=== PATIENT | female | born 1985 | race African-American/Black ===

== ENCOUNTER 2018-05-06 20:09 | Emergency (ER) | payer OTHER ==
[~2018-05-06] VITALS: Ht 162.6 cm; Wt 54.4 kg
[2018-05-06 21:00] VITALS: BP 126/90
--- NOTE | 2018-05-06 21:13 | Emergency Room Report ---
History of Present Illness General Chief Complaint: General Complaint Source: Patient Present Illness HPI Patient presents with several months of rash on her skin. They've enlarging in size. They've been itching. She denies any trauma to these areas. She denies fevers, chills, nausea, vomiting, diarrhea. She also recently saw her PSYCHOLOGICAL ASSISTANT and states that the exam was benign and denies any dysuria. She denies any medication at this time. (Later she recalls using Flagyl which she stopped several days ago.) The rashes predated the use of medication. She is concerned as one of these is on her lower lip. There is darkening of the pigment of her lip on one side. Though she denies pain to me (more itching) she reported pain 7/10 in these areas. They first appeared in August or September. At that time, there were no new foods, perfumes, soaps or exposures. No increased stress. No SOB, throat swelling, chest pain, joint pain. LNMP ended 4 days ago. Allergies: Coded Allergies: No Known Allergies (Unverified , 05/06/18) Patient History Past Medical History: see triage record Social History: Reports: smoking Social History Narrative here with friend Last Menstrual Period: 4 days ago Now: No Reviewed Nursing Documentation: PMH: Agreed; PSxH: Agreed Nursing Documentation-PMH Past Medical History: No Stated History Review of Systems All Other Systems: negative except mentioned in HPI Physical Exam Vital Signs Date Time Temp Pulse Resp B/P (MAP) Pulse Ox O2 Delivery O2 Flow Rate FiO2 05/06/18 20:48 98.2 95 16 126/90 96 Room Air Sp02 EP Interpretation: reviewed, normal General Appearance: well appearing, no apparent distress, GCS 15 Head: normocephalic, atraumatic Eyes: bilateral eye normal inspection, bilateral eye PERRL ENT: normal pharynx, no angioedema, moist mucus membranes, other - slight swelling L lower lip, no oral lesions Neck: supple Respiratory: lungs clear, normal breath sounds Cardiovascular #1: regular rate, rhythm Cardiovascular #2: 2+ radial (R) Gastrointestinal: normal inspection, normal bowel sounds, non tender, no mass, non-distended Musculoskeletal: back normal, gait/station normal, normal range of motion Neurologic: alert, oriented x3, grossly normal Psychiatric: mood/affect normal Skin: other - Purpuric/hyperpigmented macules 2 x 4 cm on the arm with surrounding erythema. These are not target lesions. Medical Decision Making Diagnostic Impression: Primary Impression: Contact dermatitis Qualified Codes: L25.9 - Unspecified contact dermatitis, unspecified cause Additional Impression: Solar purpura ER Course Patient presents with itchy skin lesions. Differential includes palpable purpura, vasculitis, bruising, thrombocytopenia amongst others. Labs will be performed including urinalysis, sedimentation rate and also coagulation studies. The patient will be given a dose of Benadryl. Labs with normal ESR, CBC, CMP, coags and urine. Patient somewhat improved with Benadryl. These lesions appear to be solar purpura. Patient stable for outpatient observation and treatment. Advised to follow up with a special tester. Laboratory Tests Test 05/06/18 21:58 05/06/18 21:59 Urine Color Yellow Urine Appearance Cloudy Urine pH 8 (4.5-8.0) Urine Specific [place] 1.015 (1.005-1.035) Urine Protein Negative (NEGATIVE) Urine Glucose (UA) Negative (NEGATIVE) Urine Ketones Negative (NEGATIVE) Urine Blood 1+ (NEGATIVE) H Urine Nitrite Negative (NEGATIVE) Urine Bilirubin Negative (NEGATIVE) Urine Urobilinogen 1 MG/DL (0.0-1.0) H Urine Leukocyte Esterase 1+ (NEGATIVE) H Urine RBC 2-4 /HPF (0 - 2) H Urine WBC 0-2 /HPF (0 - 2) Urine Squamous Epithelial Cells Few /LPF (NONE/OCC) Urine Amorphous Sediment Many /LPF (NONE) H Urine Bacteria Moderate /HPF (NONE) H Urine HCG, Qualitative Negative (NEGATIVE) White Blood Count 8.1 K/UL (4.8-10.8) Red Blood Count 4.81 M/UL (4.20-5.40) Hemoglobin 14.0 G/DL (12.0-16.0) Hematocrit 42.7 % (37.0-47.0) Mean Corpuscular Volume 89 FL (80-99) Mean Corpuscular Hemoglobin 29.1 PG (27.0-31.0) Mean Corpuscular Hemoglobin Concent 32.8 G/DL (32.0-36.0) Red Cell Distribution Width 12.9 % (11.6-14.8) Platelet Count 519 K/UL (150-450) H Mean Platelet Volume 5.4 FL (6.5-10.1) L Neutrophils (%) (Auto) 43.1 % (45.0-75.0) L Lymphocytes (%) (Auto) 43.6 % (20.0-45.0) Monocytes (%) (Auto) 8.6 % (1.0-10.0) Eosinophils (%) (Auto) 1.6 % (0.0-3.0) Basophils (%) (Auto) 3.1 % (0.0-2.0) H Erythrocyte Sedimentation Rate 6 MM/HR (0-20) Prothrombin Time 11.3 SEC (9.30-11.50) Prothrombin Time INR 1.1 (0.9-1.1) PTT 29 SEC (23-33) Sodium Level 139 MMOL/L (136-145) Potassium Level 3.9 MMOL/L (3.5-5.1) Chloride Level 102 MMOL/L (98-107) Carbon Dioxide Level 29 MMOL/L (21-32) Anion Gap 8 mmol/L (5-15) Blood Urea Nitrogen 11 mg/dL (7-18) Creatinine 0.8 MG/DL (0.55-1.30) Estimate Glomerular Filtration Rate > 60 mL/min (>60) Glucose Level 92 MG/DL (74-106) Calcium Level 9.3 MG/DL (8.5-10.1) Total Bilirubin 0.3 MG/DL (0.2-1.0) Aspartate Amino Transferase (AST) 21 U/L (15-37) Alanine Aminotransferase (ALT) 28 U/L (12-78) Alkaline Phosphatase 67 U/L (46-116) Total Creatine Kinase 113 U/L (26-308) Total Protein 9.0 G/DL (6.4-8.2) H Albumin 4.2 G/DL (3.4-5.0) Globulin 4.8 g/dL Albumin/Globulin Ratio 0.9 (1.0-2.7) L Last Vital Signs Date Time Temp Pulse Resp B/P (MAP) Pulse Ox O2 Delivery O2 Flow Rate FiO2 05/06/18 23:45 98.2 76 16 126/90 96 Room Air Status: improved Disposition: HOME, SELF-CARE Condition: Improved Scripts Diphenhydramine Hcl* (BENADRYL*) 25 Mg Capsule 25 MG ORAL Q6H PRN for Itching, #16 CAP Prov: Javon Marroquin MD 05/06/18 Prednisone* (PREDNISONE*) 20 Mg Tablet 40 MG ORAL DAILY, #6 TAB Prov: Javon Marroquin MD 05/06/18 Hydrocortisone/Aloe Vera 1%* (HYDROCORTISONE-ALOE 1% CREAM*) Y Cr 1 APPLIC TOPIC Q6H PRN for Itching, #30 GM Prov: Javon Marroquin MD 05/06/18 Bacitracin (Bacitracin) 28.4 Gm Oint...g. 1 APPLIC TOPIC BID, #20 GM Prov: Javon Marroquin MD 05/06/18 Javon Marroquin MD May 06, 2018 21:13
[2018-05-06 22:16] LABS: BASOPHILS % (AUTO) 3.1 % (0.0-2.0); EOSINOPHILS % (AUTO) 1.6 % (0.0-3.0); HEMATOCRIT 42.7 % (37.0-47.0); LYMPHOCYTES % (AUTO) 43.6 % (20.0-45.0); MEAN CORPUSCULAR VOLUME 89 FL (80-99); MONOCYTES % (AUTO) 8.6 % (1.0-10.0); NEUTROPHILS % (AUTO) 43.1 % (45.0-75.0); PLATELET COUNT 519 K/UL (150-450); RED BLOOD COUNT 4.81 M/UL (4.20-5.40); RED CELL DISTRIBUTION WIDTH 12.9 % (11.6-14.8); WHITE BLOOD COUNT 8.1 K/UL (4.8-10.8)
[2018-05-06 22:17] LABS: APPEARANCE,URINE CLOUDY; BILIRUBIN, URINE NEGATIVE (NEGATIVE); GLUCOSE, URINE (UA) NEGATIVE (NEGATIVE); KETONES,URINE NEGATIVE (NEGATIVE); LEUKOCYTE ESTERASE ,URINE 1+ (NEGATIVE); NITRITE,URINE NEGATIVE (NEGATIVE); PH,URINE 8 (4.5-8.0); PROTEIN,URINE NEGATIVE (NEGATIVE); UROBILINOGEN,URINE 1 MG/DL (0.0-1.0)
[2018-05-06 22:18] LABS: INR 1.1 (0.9-1.1)
[2018-05-06 22:21] LABS: COLOR,URINE YELLOW
[2018-05-06 22:26] LABS: ANION GAP 8 mmol/L (5-15); BLOOD UREA NITROGEN 11 mg/dL (7-18); CALCIUM 9.3 MG/DL (8.5-10.1); CARBON DIOXIDE 29 MMOL/L (21-32); CHLORIDE 102 MMOL/L (98-107); CREATININE 0.8 MG/DL (0.55-1.30); POTASSIUM 3.9 MMOL/L (3.5-5.1); SODIUM 139 MMOL/L (136-145)
[2018-05-06 22:30] LABS: ALANINE AMINOTRANSFERASE 28 U/L (12-78); ALBUMIN 4.2 G/DL (3.4-5.0); ALBUMIN/GLOBULIN RATIO 0.9 (1.0-2.7); ALKALINE PHOSPHATASE 67 U/L (46-116); ASPARTATE AMINO TRANSFERASE 21 U/L (15-37); BILIRUBIN,TOTAL 0.3 MG/DL (0.2-1.0); CREATINE KINASE 113 U/L (26-308)
[2018-05-06] MEDS ORDERED: BENADRYL25 MG ORAL (23:36)
[2018-05-06] MEDS ORDERED: BACITRACIN15 GM TOPIC (23:36)
[2018-05-06] MEDS ORDERED: HYDROCORTISONE-30 GM TOPIC (23:36)
[2018-05-06] MEDS ORDERED: PREDNISONE20 MG ORAL (23:36)
[2018-05-06 23:45] VITALS: BP 126/90
== END 2018-05-06 23:43 | disposition home or self-care (01) ==
LOC: EMR 22:51
DX: L25.9 Unspecified contact dermatitis, unspecified cause (principal); L57.8 Other skin changes due to chronic exposure to nonionizing radiation
CPT/HCPCS: 36415; 80053; 81003; 81025; 82550; 85025; 85610; 85651; 85730; 87086; 87181; 99284; J7512